=== PATIENT | male | born 1945 | race Caucasian/White ===

== ENCOUNTER → 2019-08-20 | Outpatient (CLI) | payer OTHER ==
[2019-08-20 08:06] LABS: CALCIUM 9.5 mg/dL (8.5-10.1); CREATININE 1.1 mg/dL (0.7-1.3); POTASSIUM 4.1 mmol/L (3.5-5.1)
== END ==
LOC: CAT 07:19
PROVIDERS: Internal Medicine Cardiovascular Disease
DX: Z01.812 Encounter for preprocedural laboratory examination (principal); I71.4 Abdominal aortic aneurysm, without rupture; K55.1 Chronic vascular disorders of intestine; M47.816 Spondylosis without myelopathy or radiculopathy, lumbar region; N20.0 Calculus of kidney

== ENCOUNTER → 2019-09-02 | Outpatient (CLI) | payer OTHER | LOC: ULTRA 13:32 | DX: N20.0 Calculus of kidney (principal); N28.1 Cyst of kidney, acquired; I71.4 Abdominal aortic aneurysm, without rupture ==

== ENCOUNTER → 2019-11-05 | Outpatient (CLI) | payer OTHER ==
[~2019-11-05] MED LIST: BENADRYL25 MG PO; BYSTOLIC10 MG PO; CHLORHEXIDINE FL1 ML PO; COMBIVENT INH; COZAAR 25 MG TA25 M1 PO; GLYBURIDE 5 MG T5 M1 PO; HYDROCHLOROTH12.5 M1 PO; HYDROCHLOROTHIA25 M2 PO; LIPITOR40 MG PO; METFORMIN HCL500 M3 PO; PEPCID20 MG PO; PREDNISONE 20 M20 MG PO; PROAIR HFA8.5 GM INH; SINGULAIR 10 MG10 MG PO
== END ==
LOC: SJCVC 09:57
DX: I21.29 ST elevation (STEMI) myocardial infarction involving other sites (principal); R94.31 Abnormal electrocardiogram [ECG] [EKG]; I71.4 Abdominal aortic aneurysm, without rupture; E78.5 Hyperlipidemia, unspecified; E11.9 Type 2 diabetes mellitus without complications; I25.10 Atherosclerotic heart disease of native coronary artery without angina pectoris; G47.33 Obstructive sleep apnea (adult) (pediatric); I72.3 Aneurysm of iliac artery; I10 Essential (primary) hypertension; E78.00 Pure hypercholesterolemia, unspecified; I35.0 Nonrheumatic aortic (valve) stenosis; Z79.899 Other long term (current) drug therapy

== ENCOUNTER 2019-11-20 06:50 | Observation (INO) | payer OTHER ==
[~2019-11-20] VITALS: Ht 188 cm; Wt 122.9 kg
--- NOTE | ~2019-11-20 | EKG ---
[facility] [place] [address] ELECTROCARDIOGRAM REPORT Name: HOA DE SANTIAGO Room #: REG [facility].#: [id number] Admission: 11/20/19 Attend Phys: Ananda Barajas MD, Discharge: Date of : 49 Report #: [id number] THIS REPORT FOR: cc: Ezra Gerber MD, David W. MD Epiphany, Epiphany MD ~ THIS REPORT FOR: //name// [facility] Test Date: 2019-11-20 Test Time: 07:18:20 Pat Name: HOA DE SANTIAGO Department: Room: Gender: Second Ride Fare Collector: Franco SURESH : 1945 Requested By: Ananda Barajas Order Number: [id number] MD: Measurements Intervals [place] Rate: 59 P: 9 MS: 229 QRS: -23 QRSD: 124 T: 47 QT: 459 QTc: 455 Interpretive Statements Sinus rhythm Prolonged MS interval LVH with IVCD and secondary repol abnrm No previous ECG available for comparison [email or web address] By: 0718 07 Epiphany EpiphMD deloris /EPI
--- NOTE | ~2019-11-20 | EKG ---
[facility] [place] [address] ELECTROCARDIOGRAM REPORT Name: HOA DE SANTIAGO [id number] Admission: 11/20/19 Attend Phys: Ananda Barajas MD, Discharge: Date of : 49 Report #: [id number] THIS REPORT FOR: cc: Ezra Gerber MD, David W. MD Epiphany,Elizabeth PROCTOR ~ THIS REPORT FOR: //name// [facility] Test Date: 2019-11-20 Test Time: 11:40:21 Pat Name: HOA DE SANTIAGO Department: Room: Gender: Extruding Department Supervisor: Franco SURESH : 1945 Requested By: Paola Edmond Order Number: [id number] MD: Measurements Intervals [place] Rate: 67 P: 27 SC: 246 QRS: -19 QRSD: 125 T: 17 QT: 457 QTc: 483 Interpretive Statements Sinus rhythm Atrial premature complex Prolonged SC interval Nonspecific intraventricular conduction delay Compared to ECG 11/20/2019 07:18:20 Atrial premature complex(es) now present Left ventricular hypertrophy no longer present Early repolarization no longer present [email or web address] By: 1140 1140 Epiphany Epiphany, /EPI
[2019-11-20 07:11] VITALS: BP 129/77
[2019-11-20] MEDS ORDERED: LIPITOR40 MG PO (07:17)
[2019-11-20] MEDS ORDERED: PROAIR HFA8.5 GM INH (07:17)
[2019-11-20] MEDS ORDERED: PEPCID20 MG PO (07:19)
[2019-11-20] MEDS ORDERED: CHLORHEXIDINE FL1 ML PO (07:19)
[2019-11-20] MEDS ORDERED: GLYBURIDE 5 MG T5 M1 PO (07:21)
[2019-11-20] MEDS ORDERED: HYDROCHLOROTHIA25 M2 PO (07:21)
[2019-11-20] MEDS ORDERED: COZAAR 25 MG TA25 M1 PO (07:22)
[2019-11-20] MEDS ORDERED: METFORMIN HCL500 M3 PO (07:22)
[2019-11-20] MEDS ORDERED: COMBIVENT INH (07:22)
[2019-11-20] MEDS ORDERED: SINGULAIR 10 MG10 MG PO (07:23)
[2019-11-20] MEDS ORDERED: BYSTOLIC10 MG PO (07:23)
[2019-11-20 07:30] LABS: HEMATOCRIT 39.7 % (42.0-52.0); HEMOGLOBIN 13.2 gm/dL (14.0-18.0); MCH 33.3 pg (26.0-34.0); MCHC 33.1 g/dL (28.0-37.0); MCV 100.4 fL (80.0-100.0); PLATELET COUNT 204 thou/uL (150-400); RBC 3.96 mil/uL (4.50-6.00); RDW 13.3 % (10.5-14.5); WBC 8.1 thou/uL (4.0-11.0)
[2019-11-20 07:43] LABS: ANION GAP 13 mmol/L (7-16); BUN 17 mg/dL (7-18); CALCIUM 9.1 mg/dL (8.5-10.1); CHLORIDE 100 mmol/L (98-107); CO2 25 mmol/L (21-32); CREATININE 1.1 mg/dL (0.7-1.3); GLUCOSE 182 mg/dL (74-106); POTASSIUM 3.9 mmol/L (3.5-5.1); SODIUM 138 mmol/L (136-145)
[2019-11-20 12:24] LABS: APTT 28.8 Seconds (24.5-32.8); PROTIME 10.5 Seconds (9.3-11.4)
[2019-11-20 12:50] LABS: PLATELET ESTIMATE NORMAL
[2019-11-20 13:12] LABS: URINE BILIRUBIN NEGATIVE (Negative); URINE BLOOD NEGATIVE (Negative); URINE CLARITY CLEAR; URINE COLOR YELLOW; URINE GLUCOSE-RANDOM* 1+ (Negative); URINE KETONES NEGATIVE (Negative); URINE LEUKOCYTES-REFLEX NEGATIVE (Negative); URINE NITRITE-REFLEX NEGATIVE (Negative); URINE PROTEIN (DIPSTICK) NEGATIVE (Negative); URINE UROBILINOGEN 0.2 E.U./dl (0.2-1.0)
[2019-11-20 15:00] VITALS: BP 119/69
--- NOTE | 2019-11-20 16:35 | NUR ---
PT CARE ASSUMED APPROX 1500. ASSESSMENT CHARTED. PT DENIES PAIN AND SOA. VSS. ARRIVED TO UNIT POST PROCEDURE BUT ALL POST PROCEDURE PROTOCOLS COMPLETED. PT UP WITH SBA. TOLERATING POC. DENIES QUESTIONS OR CONCERNS AT THIS TIME. NO DISTRESS NOTED.
[2019-11-20 18:50] VITALS: BP 119/69
--- NOTE | 2019-11-20 19:02 | NUR ---
PT VERY UNCOMFPRTABLE AND NONCOMPLIANT. HE DENIES AN ISSUE WITH NURSING CARE BUT REPORTS FEELING VERY UNCOMFORTABLE IN BED AND THAT THE NOISE LEVEL AT 1800 WAS TOO LOUD AND HE'S WANTING A "GOOD NIGHT'S REST." DR RUEDA WAS NOTIFIED AND CAME IN TO DO DISCHARGE. COMPLETING DISCHARGE AT THIS TIME. DR RUEDA COMPLETED PT EDUCATION AND GAVE FOLLOW INFO. THIS NURSE WILL HAVE PT SIGN TIMELY. IV OUT, TELE BOX OFF.
[2019-11-21 08:41] LABS: ALBUMIN 4.4 g/dL (3.4-5.0); DIRECT BILIRUBIN < 0.1 mg/dL (<0.1-0.2); SGOT 12 U/L (15-37); SGPT 28 U/L (30-65); TOTAL BILIRUBIN 0.3 mg/dL (<0.1-1.0)
[2019-11-22] MEDS ORDERED: HYDROCHLOROTH12.5 M1 PO (11:43)
[2019-11-22] MEDS ORDERED: PREDNISONE 20 M20 MG PO (11:45)
[2019-11-22] MEDS ORDERED: BENADRYL25 MG PO (11:45)
--- NOTE | 2019-11-23 12:50 | CATHLAB ---
[facility] [place] [address] [address] INVASIVE PROCEDURE REPORT Name: HOA DE SANTIAGO Room #: 219-P [facility] Ben M.RManjinder#: [id number] Admission: 11/20/19 Attend Phys: Ananda Rueda MD, Discharge: 11/20/19 Date of : 49 Report #: [id number] THIS REPORT FOR: cc: Ezra Gerber MD, David W. MD Mancuso, Gerald M. MD [facility] ~ APPROVED REPORT Study performed: 11/20/2019 10:14:03 Patient Details Patient Status: Out-Patient Room #: The patient is a 74 year-old male Event Personnel Ananda Rueda Business Integration Analyst, Kayleigh JeffersonR, Zachary Poole Roberta Monitor, Anna Pepper RN ceramic chemist Performed Left Heart Cath w/or w/o Coronaries [id number] [facility] Hemostasis w/ Mynx 42828 Initial Mod Sed Same Phys/QHP Gr5y 057645 Indication Chest pain Procedure Narrative A SHEATH BRITE-TIP 6F X 11CM ([id number]) sheath was inserted into the RFA^. Coronary angiography was performed using coronary diagnostic catheters. The right coronary system was accessed and visualized with a JR4 catheter. The left coronary system was accessed and visualized with a JL5 catheter. The left ventricle was accessed and visualized with a ANGLE PIG catheter. Left ventriculogram was performed in 30 degree projection. An aortogram of the ascending aorta was performed. THIS WAS A COMBO CASE WITH DR. RUEDA AND DR LANG. Intraoperative Conscious Sedation Sedation start time: 832 Case end Time: 1050 Fentanyl 25 mcg Versed 50 mg Fluoro Time: 22.93 minutes Dose: DAP 66588.40 cGycm2 4799 mGy [facility] [place] [address] [place] [address] INVASIVE PROCEDURE REPORT Name: HOA DE SANTIAGO Room #: 219-P [facility] IN .R.#: [id number] Admission: 11/20/19 Attend Phys: Ananda Rueda, Discharge: 11/20/19 Date of : 49 Report #: [id number] Contrast Type and Amount: Visipaque 232 ml Hemodynamics The aortic pressure is 189/92 mmHg with a mean of 90 mmHg. The left ventricular pressure is 198/21 mmHg with a mean of mmHg. The left ventricular end diastolic pressure is 37 mmHg. THERE WAS A GRADIENT OF 12 FOR THE LV PRESSURES. Conclusion #1 normal left ventricular size and systolic function lower limits of normal. EF 50% 10-12 mm gradient across aortic valve pullback inferior base is hypokinetic #2 mildly dilated aortic root with mild aortic insufficiency #3 short left main calcified mildly disease giving rise to LAD circumflex. #4 LAD proximal calcification moderately disease 40-50% proximal irregularity and mild distal disease to the apex. #5 nondominant circumflex with mild disease may be a prior occlusion of a first OM branch. Probable codominant vessel #6 codominant right coronary artery small-caliber essentially distally occluded Recommendations and plan: Continue aggressive risk factor modification. Patient undergo aortic stent graft later procedure. See Dr. Lang runoff and aortic angiogram. <ELECTRONICALLY SIGNED> By: Ananda Rueda MD, FACC 11/23/19 1249 1249 1249 Ananda Rueda MD, FACC /INF
--- NOTE | 2019-11-24 16:46 | HC ---
[facility] [place] [address] CONSULTATION Name: HOA DE ASNTIAGO Room #: 219-P [facility] Ben Noe#: [id number] Admission: 11/20/19 Attend Phys: Ananda Barajas MD, Discharge: 11/20/19 Date of : 49 Report #: [id number] THIS REPORT FOR: cc: Ezra Gerber MD, David W. MD Forman, John M. MD ~ THIS REPORT FOR: //name// CC: Ezra Barajas DATE OF SERVICE: 11/20/2019 We were asked by Dr. Lang to see the patient. HISTORY OF PRESENT ILLNESS: The patient is a 74-year-old with an abdominal aortic aneurysm. CT scan shows a 5.6 cm infrarenal aneurysm. 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 The patient denies symptoms of the aneurysm. He does have other medical problems that include diabetes mellitus, hyperlipidemia, hypertension, obstructive sleep apnea. MEDICATIONS: At home includes albuterol, Azelastine nasal spray, Peridex gargle, Zetia, Pepcid, Glucotrol, hydrochlorothiazide, Atrovent, Cozaar, Glucophage, Singulair, Bystolic, lactulose. ALLERGIES: The patient claims to be ALLERGIC TO TETRACYCLINE AND TO IODINE CONTRAST. SOCIAL HISTORY: The patient is retired. He is a heavy smoker, who just recently quit. The patient is , moved from [place] to [place] to be near son in [place]. REVIEW OF SYSTEMS: GENERAL: No recent weight change. No fever. EYES: No change in vision. HENT: No headache, no hearing loss. No sinus problems. CARDIAC: Some shortness of breath with exertion. No chest pain, no palpitations. VASCULAR: No lower extremity claudication. RESPIRATORY: No cough. Does mention some shortness of breath with exertion. GASTROINTESTINAL: No nausea, vomiting, diarrhea, or blood. GENITOURINARY: No dysuria or hematuria. MUSCULOSKELETAL: No bone or joint pain. SKIN: No rash or infection. [facility] [address] [place] [address] CONSULTATION Name: HOA DE SANTIAGO Room #: 219-P [facility] Ben Noe#: [id number] Admission: 11/20/19 Attend Phys: Ananda Barajas MD, Discharge: 11/20/19 Date of : 49 Report #: [id number] PHYSICAL EXAMINATION: CONSTITUTIONAL: The patient is status post cardiac catheterization, lying in bed. VITAL SIGNS: Blood pressure 128/76, heart rate 87. HEENT: No scleral icterus, no arcus. NECK: No mass, seems to have a transmitted murmur at left neck. CHEST: Clear to auscultation. HEART: Rhythm regular with aortic systolic murmur radiates to the neck. ABDOMEN: Soft, no mass. EXTREMITIES: No clubbing, cyanosis or edema. SKIN: No rash or infection. Pulses 2+ dorsalis pedis and posterior tibial pulses. MUSCULOSKELETAL: No asymmetry or deformity. NEUROLOGIC: No motor or sensory dysfunction. ASSESSMENT AND PLAN: The patient has abdominal aneurysm with left iliac and hypogastric extension and is a candidate for stent graft implant. Risks and details were discussed. Options and alternatives were reviewed. The patient understands all of this and wishes to proceed. We do note the aortic systolic murmur indicative of aortic valve stenosis. Cardiac echo reveals that left ventricular function is normal and there is a 76 mm pressure gradient across the valve, peak gradient with a mean gradient of 50 and a calculated valve area of 0.9. The patient is asymptomatic from this, however. I will discuss case with Dr. Lang and we will make arrangements for stent graft implant. <ELECTRONICALLY SIGNED> By: Ruy Sweet MD 11/24/19 1646 1416 2153 Ruy Sweet MD /nt
== END 2019-11-20 19:18 | disposition home or self-care (01) ==
LOC: CATH 06:50 → 2N 14:33
PROVIDERS: Surgery Vascular Surgery; ADMIT Internal Medicine Cardiovascular Disease
DX: I71.4 Abdominal aortic aneurysm, without rupture (principal); E11.9 Type 2 diabetes mellitus without complications; E78.5 Hyperlipidemia, unspecified; I10 Essential (primary) hypertension; G47.33 Obstructive sleep apnea (adult) (pediatric); Z87.891 Personal history of nicotine dependence

== ENCOUNTER → 2019-11-21 | Outpatient (CLI) | payer OTHER | LOC: SJCVC 14:33 | DX: I25.10 Atherosclerotic heart disease of native coronary artery without angina pectoris (principal); E78.00 Pure hypercholesterolemia, unspecified ==

== ENCOUNTER → 2019-11-27 | Outpatient (CLI) | payer OTHER | LOC: SJCVC 12:43 | DX: I10 Essential (primary) hypertension (principal); I25.10 Atherosclerotic heart disease of native coronary artery without angina pectoris; I71.4 Abdominal aortic aneurysm, without rupture; I72.3 Aneurysm of iliac artery; E78.00 Pure hypercholesterolemia, unspecified; E11.9 Type 2 diabetes mellitus without complications; M19.90 Unspecified osteoarthritis, unspecified site; Z79.899 Other long term (current) drug therapy ==